=== PATIENT | male | born 1990 | race Caucasian/White ===

== ENCOUNTER → 2023-10-30 12:47 | Outpatient (REF) | payer OTHER, SELFPAY | LOC: HWRAD 12:47 | PROVIDERS: ATTENDING PHYSICIAN Internal Medicine | DX: Z22.7 Latent tuberculosis (principal) | CPT/HCPCS: 71046; 76870; 93976 ==

== ENCOUNTER → 2023-11-09 13:50 | Outpatient (REF) | payer OTHER, SELFPAY | LOC: HWRAD 13:50 | PROVIDERS: ATTENDING PHYSICIAN Internal Medicine | DX: R59.0 Localized enlarged lymph nodes (principal); Z22.7 Latent tuberculosis | CPT/HCPCS: 71260; Q9967 ==

== ENCOUNTER 2023-11-20 06:12 | Day surgery (SDC) | payer OTHER, SELFPAY ==
[2023-11-20 11:09] VITALS: BMI 30.5
[2023-11-20 11:14] VITALS: BMI 30.5
[2023-11-20 11:15] VITALS: BP 143/75
[2023-11-20 13:20] VITALS: BP 125/71; BP 131/86
[2023-11-20 13:21] VITALS: BP 125/71
[2023-11-20 13:30] VITALS: BP 125/68
[2023-11-20 14:03] VITALS: BP 118/82
--- NOTE | 2023-11-20 14:12 | SUR.PHASEI ---
arrived sedate with oral airway, rhonchi - woke and airway out, loose nonproductive cough, sats good, xray done and reviewed by Dr Morales who visits x2 in pacu. patient with minimal discomfort. lungs clear to few rhonchi or left - right clear,
discharge to sds
[2023-11-20 14:30] VITALS: BP 125/76
== END 2023-11-20 15:00 | disposition home or self-care (01) ==
LOC: GI 06:12
PROVIDERS: ATTENDING PHYSICIAN Internal Medicine Critical Care Medicine
DX: R93.3 Abnormal findings on diagnostic imaging of other parts of digestive tract (principal); D36.0 Benign neoplasm of lymph nodes; R59.0 Localized enlarged lymph nodes; R91.1 Solitary pulmonary nodule
CPT/HCPCS: 31653; 88172; 88173; 88305; 71045; 87015; 87070; 87102; 87116; 87205

== ENCOUNTER → 2024-10-18 13:09 | Outpatient (REF) | payer OTHER, SELFPAY | LOC: RCS 13:09 | PROVIDERS: ATTENDING PHYSICIAN Internal Medicine | DX: D86.9 Sarcoidosis, unspecified (principal); R06.09 Other forms of dyspnea | CPT/HCPCS: 93306; 93356 ==